=== PATIENT | female | born 1935 | race Caucasian/White ===

== ENCOUNTER → 2020-11-26 | Outpatient (CLI) | payer MEDICARE ==
[~2020-11-26] MED LIST: ISOVUE-300 61% 50ML VIAL As Ordered ONE; LIDOCAINE 1% MDV 20ML VIAL As Ordered ONE; methylPREDNISolone SUSP 40MG/ML 1ML VIAL (DEPO MEDROL) As Ordered ONE
--- NOTE | 2020-11-26 17:15 | REP ---
INDICATION: STERIOD INJECTION BILATERAL HIPS. COMPARISON: None. TECHNIQUE: The procedure was performed under the direct supervision of Dr. Camejo. The benefits and risks including but not limited to pain infection and bleeding and anaphylaxis were explained to the patient and informed consent was obtained. The right femoral neck was localized using fluoroscopic guidance. The skin was prepped and draped in a sterile fashion. 1% lidocaine was used as a local anesthetic. Using fluoroscopic guidance, and last image hold technology, a 22-gauge spinal needle was inserted and advanced to the femoral neck. 0.5 ml of Isovue-300 was injected to verify placement. Five ml of a solution containing 3 ml of 1% Xylocaine and 2 mL of Depo-Medrol 40 mg was injected. The needle was then removed. The patient tolerated the procedure well and there were no immediate complications. Less than 6 seconds of fluoro time was utilized for this procedure. FINDINGS: None IMPRESSION: Fluoro guidance for right hip injection. <Electronically signed by Severiano Khalil > 11/26/20 1656 <Electronically signed by Norbert Camejo > 11/26/20 [id number]
--- NOTE | 2020-11-26 17:16 | REP ---
INDICATION: UNILATERAL PRIMARY OSTEOARTHRITIS, RIGHT AND LEFT HIP. COMPARISON: None. TECHNIQUE: The procedure was performed under the direct supervision of Dr. Camejo. The benefits and risks including but not limited to pain infection and bleeding and anaphylaxis were explained to the patient and informed consent was obtained. The left femoral neck was localized using fluoroscopic guidance. The skin was prepped and draped in a sterile fashion. 1% lidocaine was used as a local anesthetic. Using fluoroscopic guidance, and last image hold technology, a 22-gauge spinal needle was inserted and advanced to the femoral neck. 0.5 ml of Isovue-300 was injected to verify placement. Five ml of a solution containing 3 ml of 1% Xylocaine and 2 mL of Depo-Medrol 40 mg was injected. The needle was then removed. The patient tolerated the procedure well and there were no immediate complications. Less than 6 seconds of fluoro time was utilized for this procedure. FINDINGS: None IMPRESSION: Fluoro guidance for left hip injection. <Electronically signed by Severiano Khalil > 11/26/20 [id number] <Electronically signed by Norbert Camejo > 11/26/20 [id number]
== END ==
LOC: M RADPRO 10:20
PROVIDERS: ATTEND Physician Assistant Surgical
DX: M16.10 Unilateral primary osteoarthritis, unspecified hip (principal)
CPT/HCPCS: 20610; 77002; J1030; Q9967

== ENCOUNTER → 2024-07-25 | Outpatient (CLI) | payer MEDICARE | LOC: M PLARAD 12:40 | PROVIDERS: ATTEND Internal Medicine Nephrology | DX: D44.12 Neoplasm of uncertain behavior of left adrenal gland (principal) | CPT/HCPCS: 78815; A9552 ==